=== PATIENT | female | born 1990 | race Caucasian/White ===

== ENCOUNTER 2021-10-01 16:37 | Emergency (ER) | payer OTHER ==
[~2021-10-01 16:37] MED LIST: Iopamidol-370 76% 500 ML 1 ML ONE
[2021-10-01 18:04] LABS: #Basophils 0.1 thou/uL (0.0-0.2); #Eosinphils 0.6 thou/uL (0.0-0.7); #Lymphocytes 2.8 thou/uL (1.20-3.40); #Monocytes 0.6 thou/uL (0.11-0.59); #Neutrophils 9.3 thou/uL (1.40-6.50); %Basophils 0.6 % (0.0-1.0); %Eosinophils 4.4 % (0.0-10.0); %Lymphocytes 20.6 % (21.0-51.0); %Monocytes 4.7 % (0.0-10.0); %Neutrophils 69.7 % (42.0-75.0); Hemoglobin 15.8 g/dL (12.0-16.0); Mean Corpuscular HGB CONC 32.2 g/dL (32.0-36.0); Mean Corpuscular Hemoglobin 30.1 pg (27.0-31.0); Mean Corpuscular Volume 93.3 fL (78.0-98.0); Mean Platelet Volume 7.1 fL (7.4-10.4); Platelet Count 372 thou/uL (130-400); RBC Distribution Width 11.6 % (11.5-14.5); Red Blood Cell (RBC) Count 5.25 mill/uL (4.20-5.40); White Blood Cell (WBC) Count 13.4 thou/uL (4.8-10.8)
[2021-10-01] MEDS ORDERED: Morphine 4 MG/ML VIAL ONE (18:38)
[2021-10-01 18:39] LABS: ALT (SGPT) 33 U/L (8-55); AST (SGOT) 40 U/L (5-34); Albumin 4.1 g/dL (3.5-5.0); Alkaline Phosphatase 86 U/L (40-110); Anion Gap 16 mmol/L (10-20); BUN (Urea Nitrogen) 15 mg/dL (7.0-18.7); Bilirubin, Total 0.4 mg/dL (0.2-1.2); Calc. Creatinine Clearance 0 mL/min (70-130); Calcium 9.1 mg/dL (7.8-10.44); Carbon Dioxide 23 mmol/L (22-29); Chloride 102 mmol/L (98-107); Globulin 3.3 g/dL (2.4-3.5); Glucose 87 mg/dL (70-105); Potassium 4.7 mmol/L (3.5-5.1); Protein, Total 7.4 g/dL (6.0-8.3); Sodium 136 mmol/L (136-145)
[2021-10-01] MEDS ORDERED: predniSONE 20 MG TAB ONE (18:50)
[2021-10-01 19:37] LABS: BHCG - Serum Negative (NEGATIVE); Pregs Control Background? CLEAR/WHITE (CLR/WHITE); Pregs Control Bar Appear? YES (CONTROL BAR)
== END 2021-10-01 20:10 | disposition home or self-care (01) ==
LOC: ERS 16:37
DX: M54.31 Sciatica, right side (principal); M54.10 Radiculopathy, site unspecified
CPT/HCPCS: 80053; 83605; 84703; 85025; 93923; 96374; J2270; J7512; Q9967

== ENCOUNTER 2022-07-03 17:08 | Emergency (ER) | payer OTHER ==
[2022-07-03] MEDS ORDERED: HYDROcodone/Acetaminophen 5/325 mg Tablet ONE (18:08)
[2022-07-03] MEDS ORDERED: predniSONE 20 MG TAB ONE (18:09)
[2022-07-03] MEDS ORDERED: Ketorolac Tromethamine 30 MG/ML VIAL ONE (18:09)
== END 2022-07-03 18:50 | disposition home or self-care (01) ==
LOC: ERS 17:08
DX: S39.012A Strain of muscle, fascia and tendon of lower back, initial encounter (principal)
CPT/HCPCS: 96372; 99283; J1885; J7512

== ENCOUNTER 2022-07-17 13:39 | Outpatient (CLI) | payer OTHER | END 2022-07-17 13:40 | disposition home or self-care (01) | LOC: SCSMRI 13:39 | PROVIDERS: ATTEND Neurological Surgery | DX: M54.16 Radiculopathy, lumbar region (principal); M48.061 Spinal stenosis, lumbar region without neurogenic claudication; R93.7 Abnormal findings on diagnostic imaging of other parts of musculoskeletal system; Z98.890 Other specified postprocedural states | CPT/HCPCS: 72158 ==

== ENCOUNTER 2022-12-18 13:57 | Outpatient (CLI) | payer OTHER | END 2022-12-18 13:58 | disposition home or self-care (01) | LOC: TBSIIMAG 13:57 | PROVIDERS: ATTEND Surgery | DX: M54.50 Low back pain, unspecified (principal); M43.16 Spondylolisthesis, lumbar region | CPT/HCPCS: 72100 ==

== ENCOUNTER 2023-08-21 10:31 | Outpatient (CLI) | payer OTHER | END 2023-08-21 10:32 | disposition home or self-care (01) | LOC: DTY/OP 10:31 | PROVIDERS: ATTEND Surgery | DX: E66.01 Morbid (severe) obesity due to excess calories (principal) | CPT/HCPCS: 97802 ==

== ENCOUNTER 2023-08-23 10:01 | Outpatient (CLI) | payer OTHER | END 2023-08-23 10:02 | disposition home or self-care (01) | LOC: DTY/OP 10:01 | PROVIDERS: ATTEND Surgery | DX: E66.01 Morbid (severe) obesity due to excess calories (principal) | CPT/HCPCS: 97802 ==

== ENCOUNTER 2023-08-26 15:13 | Outpatient (CLI) | payer OTHER | END 2023-08-26 15:14 | disposition home or self-care (01) | LOC: DTY/OP 15:13 | PROVIDERS: ATTEND Surgery | DX: E66.01 Morbid (severe) obesity due to excess calories (principal) | CPT/HCPCS: 97802 ==

== ENCOUNTER 2023-08-28 11:31 | Outpatient (CLI) | payer OTHER | END 2023-08-28 11:32 | disposition home or self-care (01) | LOC: DTY/OP 11:31 | PROVIDERS: ATTEND Surgery | DX: E66.01 Morbid (severe) obesity due to excess calories (principal) | CPT/HCPCS: 97802 ==

== ENCOUNTER 2023-09-03 14:32 | Outpatient (CLI) | payer OTHER | END 2023-09-03 14:33 | disposition home or self-care (01) | LOC: DTY/OP 14:32 | PROVIDERS: ATTEND Surgery | DX: E66.01 Morbid (severe) obesity due to excess calories (principal) | CPT/HCPCS: 97802 ==

== ENCOUNTER 2023-09-09 11:51 | Outpatient (CLI) | payer OTHER | END 2023-09-09 11:52 | disposition home or self-care (01) | LOC: DTY/OP 11:51 | PROVIDERS: ATTEND Surgery | DX: E66.01 Morbid (severe) obesity due to excess calories (principal) | CPT/HCPCS: 97802 ==

== ENCOUNTER 2023-09-13 13:18 | Outpatient (CLI) | payer OTHER | END 2023-09-13 13:19 | disposition home or self-care (01) | LOC: DTY/OP 13:18 | PROVIDERS: ATTEND Surgery | DX: E66.01 Morbid (severe) obesity due to excess calories (principal) | CPT/HCPCS: 97802 ==

== ENCOUNTER 2023-09-16 13:06 | Outpatient (CLI) | payer OTHER | END 2023-09-16 13:07 | disposition home or self-care (01) | LOC: DTY/OP 13:06 | PROVIDERS: ATTEND Surgery | DX: E66.01 Morbid (severe) obesity due to excess calories (principal); Z68.43 Body mass index [BMI] 50.0-59.9, adult | CPT/HCPCS: 97802 ==

== ENCOUNTER 2023-09-17 13:55 | Outpatient (CLI) | payer OTHER | END 2023-09-17 13:56 | disposition home or self-care (01) | LOC: DTY/OP 13:55 | PROVIDERS: ATTEND Surgery | DX: E66.01 Morbid (severe) obesity due to excess calories (principal) | CPT/HCPCS: 97802 ==

== ENCOUNTER 2023-10-14 07:00 | Inpatient (IN) | payer OTHER, SELFPAY ==
[2023-10-22] MEDS ORDERED: Bupivacaine 0.25% HCL 30 ML VIAL ONE (08:32)
[2023-10-22] MEDS ORDERED: EPINEPHrine 1 MG/ML VIAL ONE (08:32)
[2023-10-22] MEDS ORDERED: PROPOFOL 20 ML ONE ×2 (08:42→11:44)
[2023-10-22] MEDS ORDERED: fentaNYL PF 100 MCG/2 ML SYRINGE ONE ×2 (10:16→11:54)
[2023-10-22] MEDS ORDERED: Propofol 500 MG/50 ML VIAL ONE (10:19)
[2023-10-22] MEDS ORDERED: Ketamine In 0.9 % NaCl 50 MG/5 ML SYRINGE ONE (10:23)
[2023-10-22] MEDS ORDERED: CEFAZOLIN 2 GM VIAL ONE (10:30)
[2023-10-22] MEDS ORDERED: Sodium Chloride 0.9% 100 ML ONE (10:30)
[2023-10-22] MEDS ORDERED: SUGAMMADEX SODIUM 200 MG/2 ML VIAL ONE ×2 (10:41→11:48)
[2023-10-22] MEDS ORDERED: PROPOFOL 200 MG/20 ML VIAL ONE (10:43)
[2023-10-22] MEDS ORDERED: Ketorolac Tromethamine 30 MG/ML VIAL ONE ×2 (10:43→11:41)
[2023-10-22] MEDS ORDERED: Ondansetron PF 4 MG/2 ML Vial ONE ×3 (10:43→12:16)
[2023-10-22] MEDS ORDERED: Lidocaine 1% PF 5 ML VIAL ONE (10:43)
[2023-10-22] MEDS ORDERED: Dexamethasone 20 MG/5 ML VIAL ONE (10:43)
[2023-10-22] MEDS ORDERED: Rocuronium Bromide 10 MG/ML (10ML VIAL) ONE (10:43)
[2023-10-22] MEDS ORDERED: PHENYLEPHRINE-NS 100 MCG/ML 10 ML SYRINGE ONE ×2 (10:43→11:06)
[2023-10-22] MEDS ORDERED: Ondansetron HCl/PF 4 MG/2 ML Vial IVP PRN (11:16)
[2023-10-22] MEDS ORDERED: FENTANYL 500 MCG/10 ML VIAL 2,000 MCG in Sodium Chloride 0.9% 60 ML IV PRN (11:16)
[2023-10-22] MEDS ORDERED: Ondansetron PF 4 MG/2 ML Vial IVP PRN ×2 (11:16→12:50)
[2023-10-22] MEDS ORDERED: Promethazine HCl 25 MG/ML VIAL IM PRN ×3 (11:16→12:50)
[2023-10-22] MEDS ORDERED: Naloxone HCl 0.4 mg/ml Vial IV PRN (11:16)
[2023-10-22] MEDS ORDERED: Fentanyl CADD 100 ML IVPB PRN (11:25)
[2023-10-22] MEDS ORDERED: Communication Order-Pharmacy FS SCH (11:30)
[2023-10-22] MEDS ORDERED: fentaNYL 50 mcg/mL 1 mL Vial ONE ×3 (12:12→12:40)
[2023-10-22] MEDS ORDERED: Famotidine/PF 20 mg/2ml Vial ONE (12:26)
[2023-10-22] MEDS ORDERED: Dextrose 5% in Water 1,000 ML IV PRN (12:50)
[2023-10-22] MEDS ORDERED: diphenhydrAMINE 50 MG/ML VIAL IVP PRN (12:50)
[2023-10-22] MEDS ORDERED: Glucagon 1 MG/ML KIT IM PRN (12:50)
[2023-10-22] MEDS ORDERED: Dextrose 50% Abboject 50 ML SYRINGE SLOW IVP PRN (12:50)
[2023-10-22] MEDS ORDERED: hydrOXYzine 25 MG TAB PO PRN (12:50)
[2023-10-22] MEDS ORDERED: Ipratropium/Albuterol 3 ML NEB NEB PRN (12:50)
[2023-10-22] MEDS ORDERED: hydrALAZINE 20 MG/ML VIAL SLOW IVP PRN (12:50)
[2023-10-22 19:33] VITALS: BMI 49.9
[2023-10-22] MEDS ORDERED: Zonisamide 100 MG CAP PO SCH (21:00)
[2023-10-22] MEDS ORDERED: CLOMIPRAMINE HCL 50 MG PO SCH (21:00)
[2023-10-22] MEDS ORDERED: Aripiprazole 10 MG TAB PO SCH (21:00)
[2023-10-22] MEDS: D5 1/2 NS w/20 mEq KCL 1,000 ML IV SCH ×2 (21:39)
[2023-10-23 05:08] LABS: #Monocytes 0.3 thou/uL (0.11-0.59); #Neutrophils 6.6 thou/uL (1.40-6.50); %Basophils 0.1 % (0.0-1.0); %Lymphocytes 11.3 % (21.0-51.0); %Monocytes 3.7 % (0.0-10.0); %Neutrophils 84.6 % (42.0-75.0); Hematocrit 40.4 % (36.0-47.0); Hemoglobin 13.2 g/dL (12.0-16.0); Mean Corpuscular HGB CONC 32.7 g/dL (32.0-36.0); Mean Corpuscular Hemoglobin 30.3 pg (27.0-31.0); Mean Corpuscular Volume 92.9 fl (78.0-98.0); Mean Platelet Volume 9.9 fL (7.4-10.4); Platelet Count 357 10x3/uL (130-400); RBC Distribution Width 12.9 % (11.5-14.5); Red Blood Cell (RBC) Count 4.35 mill/uL (4.20-5.40); White Blood Cell (WBC) Count 7.8 10x3/uL (4.8-10.8)
[2023-10-23 05:43] LABS: Anion Gap 13 mmol/L (10-20); BUN (Urea Nitrogen) Less than 4 mg/dL (7.0-18.7); Calc. Creatinine Clearance 311 mL/min (70-130); Calcium 8.7 mg/dL (7.8-10.44); Carbon Dioxide 22 mmol/L (22-29); Chloride 105 mmol/L (98-107); Estimated GFR 119; Glucose 128 mg/dL (70-105); Potassium 3.6 mmol/L (3.5-5.1); Sodium 136 mmol/L (136-145)
[2023-10-23] MEDS: Hydrocodone-Acetamin 15 ML UDCUP PO PRN ×2 (05:46→10:24)
[2023-10-23] MEDS ORDERED: Zonisamide 25 MG CAP PO SCH (08:00)
[2023-10-23 08:11] VITALS: BP 109/74; TEMP 97
[2023-10-23] MEDS ORDERED: FLU VACC QS2023-24(6MOS UP)/PF 60 MCG/0.5 ML SYRINGE IM ONE (09:00)
[2023-10-23] MEDS ORDERED: Pantoprazole 40 MG VIAL IVP SCH (09:00)
== END 2023-10-23 11:54 | disposition home or self-care (01) | DRG 621 ==
LOC: EDSTATUS 10-22 07:00 → SURG A 10-22 07:20
PROVIDERS: ADMIT Surgery; ATTEND Surgery
PROC: 0DB64Z3 Excision of Stomach, Percutaneous Endoscopic Approach, Vertical (ICD-10-PCS; principal; 2023-10-22)
PROC: 8E0W4CZ Robotic Assisted Procedure of Trunk Region, Percutaneous Endoscopic Approach (ICD-10-PCS; 2023-10-22)
DX: E66.01 Morbid (severe) obesity due to excess calories (principal); F41.9 Anxiety disorder, unspecified; Z68.43 Body mass index [BMI] 50.0-59.9, adult; I10 Essential (primary) hypertension; Z90.49 Acquired absence of other specified parts of digestive tract; Z88.1 Allergy status to other antibiotic agents
CPT/HCPCS: 36415; 36416; 80048; 85025; 88307; 88342; 94760; C9113; J0171; J1100; J1650; J1885; J2405; J2704; J3010; J3480; J3490; S0020; S0028

== ENCOUNTER 2023-10-14 07:24 | Outpatient (CLI) | payer SELFPAY ==
[2023-10-14 09:04] LABS: #Monocytes 0.5 10x3/uL (0.0-1.1); #Neutrophils 5.6 10x3/uL (1.5-8.4); %Basophils 0.3 % (0.0-2.0); %Eosinophils 0.1 % (0.0-6.0); %Lymphocytes 30.2 % (18.0-47.0); %Monocytes 5.2 % (0.0-10.0); %Neutrophils 63.9 % (40.0-75.0); Hematocrit 45.6 % (34.9-44.5); Hemoglobin 14.8 g/dL (12.0-15.5); Mean Corpuscular HGB CONC 32.5 g/dL (32.0-36.0); Mean Corpuscular Hemoglobin 29.8 pg (27.0-33.0); Mean Corpuscular Volume 91.8 fl (81.6-98.3); Mean Platelet Volume 9.4 fl (7.4-10.4); Platelet Count 406 10x3/uL (150-450); RBC Distribution Width 13.3 % (11.5-14.5); Red Blood Cell (RBC) Count 4.97 10x6/uL (3.90-5.03); White Blood Cell (WBC) Count 8.8 10x3/uL (3.5-10.5)
[2023-10-14 09:37] LABS: BHCG - Serum Negative (NEGATIVE); Pregs Control Background? CLEAR/WHITE (CLR/WHITE); Pregs Control Bar Appear? YES (CONTROL BAR)
[2023-10-14 09:43] LABS: Anion Gap 16 mmol/L (10-20); BUN (Urea Nitrogen) 9 mg/dL (7.0-18.7); Calc. Creatinine Clearance 0 mL/min (70-130); Calcium 9.1 mg/dL (7.8-10.44); Carbon Dioxide 23 mmol/L (22-29); Chloride 102 mmol/L (98-107); Estimated GFR 102; Glucose 70 mg/dL (70-105); Potassium 4.2 mmol/L (3.5-5.1); Sodium 137 mmol/L (136-145)
== END 2023-10-14 07:25 | disposition home or self-care (01) ==
LOC: LABBT 07:24
PROVIDERS: ATTEND Surgery
DX: Z01.812 Encounter for preprocedural laboratory examination (principal); E66.01 Morbid (severe) obesity due to excess calories
CPT/HCPCS: 80048; 84703; 85025

== ENCOUNTER 2023-12-06 11:22 | Day surgery (SDC) | payer OTHER ==
[2023-12-06] MEDS ORDERED: Ondansetron PF 4 MG/2 ML Vial IVP PRN (11:32)
[2023-12-06] MEDS ORDERED: Sodium Chloride 0.9% 1,000 ML IV SCH (11:45)
[2023-12-06] MEDS ORDERED: Multivitamins, Adult 10 ML, Thiamine HCl 100 MG in Sodium Chloride 0.9% 1,000 ML IV SCH (11:45)
[2023-12-06 13:20] VITALS: BP 120/77; TEMP 98.4
== END 2023-12-06 14:30 | disposition home or self-care (01) ==
LOC: ONC/OP 11:22
PROVIDERS: ATTEND Surgery
DX: E86.0 Dehydration (principal)
CPT/HCPCS: 96365; 96366; J3411; J7050

== ENCOUNTER 2023-12-11 12:53 | Day surgery (SDC) | payer OTHER ==
[2023-12-11] MEDS ORDERED: Ondansetron PF 4 MG/2 ML Vial IVP PRN (13:00)
[2023-12-11] MEDS ORDERED: Sodium Chloride 0.9% 1,000 ML IV SCH (13:00)
[2023-12-11] MEDS ORDERED: Multivitamins, Adult 10 ML, Thiamine HCl 100 MG in Sodium Chloride 0.9% 1,000 ML IV SCH (14:00)
[2023-12-11 15:09] VITALS: BP 117/59; TEMP 98.5
== END 2023-12-11 15:50 | disposition home or self-care (01) ==
LOC: ONC/OP 12:53
PROVIDERS: ATTEND Surgery
DX: E86.0 Dehydration (principal)
CPT/HCPCS: 96360; 96361; J3411; J7050

== ENCOUNTER 2023-12-13 09:49 | Outpatient (CLI) | payer OTHER | END 2023-12-13 09:50 | disposition home or self-care (01) | LOC: SCSRAD 09:49 | PROVIDERS: ATTEND Family Medicine | DX: R05.9 Cough, unspecified (principal); J18.9 Pneumonia, unspecified organism | CPT/HCPCS: 71046 ==

== ENCOUNTER 2024-12-16 07:31 | Outpatient (CLI) | payer BC | END 2024-12-16 07:32 | disposition home or self-care (01) | LOC: ULT 07:31 | PROVIDERS: ATTEND Surgery | DX: R10.11 Right upper quadrant pain (principal) | CPT/HCPCS: 76705 ==